=== PATIENT | female | born 1940 | race Caucasian/White ===

== ENCOUNTER 2024-12-10 09:09 | Emergency (ER) | payer OTHER ==
--- OUTSIDE RECORDS SUMMARY | 2024-12-10 09:15 | XMS REPORT | Continuity of Care Document ---
Author Name Unknown Address [address] [facility] [address] [place] [address] [facility] Address [address] [facility] [address] [place] [address] Care Team Providers Care Retail Salesman Name Role Phone Loretta Gordon Attending Clinician Unavailable DR RONEY TIDWELL Attending Clinician Unavailgalina PEÑA, DR LORETTA Dias Attending Clinician Unavailable DR NAHUN COPELAND Attending Clinician UnaAamir Farias Attending Clinician Unavailable Jose Garcia Attending Clinician Unavailable DR AAMIR POWELL Attending Clinician Un available Sophia Bedoya Attending Clinician Unavailable Asad Sanabria Attending Clinician Unavailable Lance Zamora Attending Clinician Unavailable Anastacio Peña Attending Clinician Unavailable DR RONEY TIDWELL Admitting Clinician UnavailDR LORETTA Mallory Admitting Clinician Unavailable DR NAHUN COPELAND Admitting Clinician Aamir Hollingsworth Admitting Clinician Unavailable DR AAMIR POWELL Admitting Clinician Un available Kiko Oliver Admitting Clinician Unavailliliana ble Payers Payer Name Policy Type Policy Number Effective Date Expirati on Date Source [employer] MANAGED MEDICARE - OP [id number] [employer] MA[employer]GED MEDICARE - OP [id number] Problems Condition Name Condition Details Condition Category Status Onset Date Resolution Date Last Treatment Date Treating Clinician Comments Source Urinary tract infection Problem [facility] Anemia Problem Active [facility] Weakness Problem Active [facility] Hypertensi on Problem Active [facility] Allergies, Adverse Reactions, Alerts Allergy Name Allergy Type Status Severity Reaction(s) Onset Date Inactive Date Treating Clinician Comments Source Penicill ins Allergy to substanc e Active Unknown 09-09 10:45: 19 [facility] Penicill ins Allergy to substanc e Active 09-09 09:45: 19 [facility] Penicill ins DA Active U Rash 09-09 00:00: 00 [facility] Perez Penicill ins Allergy to substanc e Active 02-16 01:27: 03 [facility] Penicill ins Allergy to substanc e Active 02-16 00:27: 03 [facility] Penicill ins DA Active U Rash 02-16 00:00: 00 [facility] Social History Social Habit Start Date Stop Date Quantity Comments Source History of tobacco use [facility] Sex 2024-02-27 11:04:00 2024-02-27 11:04:00 Female (finding) [facility] Sex Assigned At 1940 00:00:00 1940 00:00:00 Female [facility] Smoking Status Start Date Stop Date Source Unknown if ever smoked [facility] Never smoked tobacco (finding) [facility] Medications Ordered Medication Name Filled Medication Name Start Date Stop Date Current Medication? Ordering Clinician Indication Dosage Frequency Signature (SIG) Comments Components Source Lorazepam 09-09 01:00: 00 No .5MG As Needed [facility] Lorazepam 0.5 MG Tablet 09-09 01:00: 00 No .5MG As Needed as needed for Anxiety [facility] Lorazepam 09-09 00:00: 00 No .5MG As Needed [facility] Amlodipine Besylate (Norvasc) 2.5 MG Tablet 02-16 00:00: [address] [facility] Levothyroxi ne Sodium 02-16 00:00: [address] [facility] Simvastatin 20 MG Tablet 02-16 00:00: 00 No 20MG Every Evening [facility] Valsartan (Diovan) 160 MG Tablet 02-16 00:00: [address] [facility] Levothyroxi ne Sodium 50 MCG Capsule 02-16 00:00: [address] [facility] Cholecalcif aaron (Vitamin D3) (Vitamin D3) 1000 UNIT Capsule 02-16 00:00: 00 09-09 10:48 :24 No 5000UNI T As Directed [facility] Amlodipine Besylate (Norvasc) 2.5 MG Tablet 02-15 23:00: [address] [facility] Levothyroxi ne Sodium 02-15 23:00: [address] [facility] Simvastatin 02-15 23:00: 00 No 20MG Every Evening [facility] Valsartan (Diovan) 160 MG Tablet 02-15 23:00: [address] [facility] Cholecalcif aaron (Vitamin D3) (Vitamin D3) 1000 UNIT Capsule 02-15 23:00: 00 09-09 09:48 :24 No 5000UNI T As Directed [facility] Vital Signs Vital Name Observation Time Observation Value Comments S ource WEIGHT 2023-09-09 09:49:00 58.091487 kg HEIGHT 2023-09-09 09:49:00 172.72 cm Body Temperature 2023-09-12 09:02:00 98.5 [degF] [facility] Heart Rate 2023-09-12 09:02:00 100 /min [facility] Respiratory rate 2023-09-12 09:02:00 15 /min [facility] Oxygen saturation by Pulse oximetry 2023-09-12 09:02:00 94 /min [facility] BP Systolic 2023-09-12 09:02:00 147 mm[Hg] [facility] BP Diastolic 2023-09-12 09:02:00 76 mm[Hg] [facility] Body Temperature 2023-09-12 08:02:00 98.5 [degF] [facility] Heart Rate 2023-09-12 08:02:00 100 /min [facility] Respiratory rate 2023-09-12 08:02:00 15 /min [facility] Oxygen saturation by Pulse oximetry 2023-09-12 08:02:00 94 /min [facility] BP Systolic 2023-09-12 08:02:00 147 mm[Hg] [facility] BP Diastolic 2023-09-12 08:02:00 76 mm[Hg] [facility] Height 2023-09-09 10:43:[address] [facility] Weight 2023-09-09 10:43:[address] [facility] BMI (Body Mass Index) 2023-09-09 10:43:00 19.8 kg/m2 [facility] Height 2023-09-09 09:43:[address] [facility] Weight 2023-09-09 09:43:[address] [facility] BMI (Body Mass Index) 2023-09-09 09:43:00 19.8 kg/m2 [facility] Heart Rate 2023-09-11 09:04:00 88 /min [facility] BP Systolic 2023-09-11 09:04:00 131 mm[Hg] [facility] BP Diastolic 2023-09-11 09:04:00 72 mm[Hg] [facility] Body Temperature 2023-09-11 08:00:00 97.7 [degF] [facility] Respiratory rate 2023-09-11 08:00:00 20 /min [facility] Oxygen saturation by Pulse oximetry 2023-09-11 08:00:00 98 /min [facility] Height 2023-09-09 09:43:[address] [facility] Weight 2023-09-09 09:43:[address] [facility] BMI (Body Mass Index) 2023-09-09 09:43:00 19.8 kg/m2 [facility] WEIGHT 2021-02-16 01:46:00 58.290087 kg HEIGHT 2021-02-16 01:46:00 172.72 cm Procedures Procedure Date / Time Performed Performing Clinicia n Source EKG 12 Lead 2023-09-10 09:49:00 [facility] EKG 12 Lead 2023-09-10 08:49:00 [facility] EKG 12 Lead 2023-09-10 08:49:00 [facility] XR Hip Lt 2-3 View 2023-05-19 10:26:00 [facility] XR Lumbar Spine Bending Min 4V 2023-05-19 10:26:00 [facility] Encounters Start Date/Time End Date/Time Encounter Type Admission Type Attending Clinicians Care Facility Care Department Encounter ID Source 2023-09-11 13:56:00 Outpatient Loretta Gordon [facility] [id number] [facility] ent Clinics 2023-08-19 11:41:01 Outpatient Loretta Gordon [facility] [id number] [facility] ent Clinics 2023-07-17 13:26:00 Outpatient Loretta Gordon [facility] [id number] [facility] ent Clinics 2024-02-10 09:25:00 2024-02-10 23:00:00 Outpatient [id number] 2024-02-10 09:25:00 2024-02-10 23:00:00 Outpatient RONEY HOWARD RADIOLOGY [id number] [facility] 2024-02-10 09:25:00 2024-02-10 09:25:00 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, lumbar region 02/10/2024 SNOMED-CT 1.3.6.1.4 .1.42590 1.3.6.1.4.1 .25288 [id number] 2024-02-09 08:41:00 2024-02-09 23:00:00 Outpatient LORETTA GLASS NON PATIENT [id number] [facility] 2024-02-05 13:57:00 2024-02-05 23:00:00 Outpatient [id number] 2024-02-05 13:57:00 2024-02-05 23:00:00 Outpatient LORETTA GLASS ULTRASOUND [id number] [facility] 2024-02-05 13:44:00 2024-02-05 23:00:00 Outpatient LORETTA GLASS NON PATIENT [id number] [facility] 2024-02-05 13:57:00 2024-02-05 13:57:00 Chronic kidney disease, stage 4 (severe) 02/05/2024 SNOMED-CT 1.3.6.1.4 .1.00704 1.3.6.1.4.1 .79099 [id number] 2024-01-27 14:11:00 2024-01-27 23:00:00 Outpatient LORETTA GLASS NON PATIENT [id number] [facility] 2023-11-28 08:40:00 2023-11-28 23:00:[address] SCAN [id number] [facility] 2023-11-27 16:01:00 2023-11-27 23:00:00 Outpatient NAHUN MCGUIRE OUTPATIENT [id number] [facility] 2023-09-10 13:13:00 2023-09-12 10:10:00 Inpatient Aamir Holbrook [facility] [id number] [facility] 2023-09-01 17:36:00 2023-09-01 20:33:00 Emergency ER Jose Garcia [facility] [id number] [facility] 2023-09-01 17:36:00 2023-09-01 20:33:00 Departed Emergency [facility] [id number] [facility] 2023-09-01 14:44:00 2023-09-01 14:44:00 Outpatient AAMIR BLACK [facility] PHYSICIAL THERAPY [id number] [facility] 2023-05-19 12:10:00 2023-05-19 12:11:00 Departed Physician/ Provider Office Visit [id number] [facility] Ctr-PBC Nella Bedoya VETERINARY SURGEON [id number] [facility] 2023-05-19 10:22:00 2023-05-19 10:23:00 Outpatient Sophia Dash [facility] [id number] [facility] 2023-05-19 10:22:00 2023-05-19 10:23:00 Departed Clinical [facility] [id number] [facility] 2021-02-15 23:10:00 2021-02-17 17:20:00 Inpatient ER Asad Sanabria [facility] [id number] [facility] 2020-07-18 09:27:00 2020-07-18 09:28:00 Outpatient Lance Rodrigez [facility] [id number] [facility] 2018-03-19 15:38:00 2018-03-19 15:39:00 Outpatient Anastacio Roldan [facility] [id number] [facility] 2017[facility]12-10 10:09:00 2017-12-10 10:10:00 Outpatient Lance Rodrigez [facility] [id number] [facility] Results Test Description Test Time Test Comments Results Result Co mments Source Serum or plasma sodium measurement (moles/volume)2023-09-11 04:18:00* Test Item Value Reference Range Interpretation Comme [facility] Sodium Level (test code = 2951-2) 131 mmol/L 136-145 [facility] or plasma potassium measurement (moles/volume) 2023-09-11 04:18:00* Test Item Value Reference Range Interpretation Comme [facility] Potassium Level (test code = 2823-3) 4.3 mmol/L 3.5-5.1 [facility] or plasma chloride measurement (moles/volume) 2023-09-11 04:18:00* Test Item Value Reference Range Interpretation Comme [facility] Chloride Level (test code = 2075-0) 99 mmol/L 98-107 [facility] or plasma carbon dioxide, total measurement (moles/volume)2023-09-11 04:18:00* Test Item Value Reference Range Interpretation Comme [facility] Carbon Dioxide Level (test c ode = 2027-9) 25 mmol/L 23-31 [facility] or plasma anion [id number] 04:18:00* Test Item Value Reference Range Interpretation Comme nts Anion Gap (test code = 56590-5) 11 mmol/L 10-20 [facility] or plasma urea nitrogen measurement (mass/volume)2023-09-11 04:18:00* Test Item Value Reference Range Interpretation Comme nts Blood Urea Nitrogen (test co de = 3094-0) 20 mg/dL 9.8-20.1 [facility] or plasma creatinine measurement (mass/volume) 2023-09-11 04:18:00* Test Item Value Reference Range Interpretation Comme nts Creatinine (test code = 2160-0) 0.95 mg/dL 0.6-1.1 [facility]1.73 sq M.predicted [Volume Rate/Area] in Serum, Plasma [id number] 04:18:00* Test Item Value Reference Range Interpretation Comme [facility] Estimated GFR (CKD-EPI 2020) (test code = 54096-5) 59 [facility]] in Serum or [id number] 04:18:00* Test Item Value Reference Range Interpretation Comme [facility] Glucose Level (test code = 2345-7) 129 mg/dL 83-110 [facility] calcium measurement (mass/volume) 2023-09-11 04:18:00* Test Item Value Reference Range Interpretation Comme [facility] Calcium Level (test code = 91100-6) 9.3 mg/dL 7.8-10.44 [facility] in Blood by Automated count 2023-09-11 04:18:00* Test Item Value Reference Range Interpretation Comme [facility] White Blood Count (test code = 6690-2) 10.8 10x3/uL 4.8-10.8 [facility] erythrocytes automated count (number/volume) 2023-09-11 04:18:00* Test Item Value Reference Range Interpretation Comme [facility] Red Blood Count (test code = 789-8) 3.46 mill/uL 4.20-5.40 [facility] hemoglobin measurement (mass/volume)2023-09-11 04:18:00* Test Item Value Reference Range Interpretation Comme [facility] Hemoglobin (test code = 718-7) 10.4 g/dL 12.0-16.0 [facility] whole [id number] 04:18:00* Test Item Value Reference Range Interpretation Comme [facility] Hematocrit (test code = 70890-5) 32.0 % 36.0-47.0 [facility] corpuscular volume 2023-09-11 04:18:00* Test Item Value Reference Range Interpretation Comme [facility] Mean Corpuscular Volume (ronnie t code = 787-2) 92.5 fl 78.0-98.0 [facility] mean corpuscular hemoglobin (mass per erythrocyte)2023-09-11 04:18:00* Test Item Value Reference Range Interpretation Comme [facility] Mean Corpuscular Hemoglobin (test code = 785-6) 30.1 pg 27.0-31.0 [facility] erythrocyte mean corpuscular hemoglobin concentration measurement (mass/[id number] 04:18:00* Test Item Value Reference Range Interpretation Comme [facility] Mean Corpuscular Hemoglobin Concent (test code = 786-4) 32.5 g/dL 32.0-36.0 [facility] erythrocyte distribution width ratio 2023-09-11 04:18:00* Test Item Value Reference Range Interpretation Comme [facility] Red Cell Distribution Width (test code = 788-0) 13.0 % 11.5-14.5 [facility] blood platelet count (count/volume) 2023-09-11 04:18:00* Test Item Value Reference Range Interpretation Comme [facility] Platelet Count (test code = 777-3) 257 10x3/uL 130-400 [facility] blood platelet mean [id number] 04:18:00* Test Item Value Reference Range Interpretation Comme [facility] Mean Platelet Volume (test c ode = 09896-5) 11.5 fL 7.4-10.4 [facility] neutrophils/100 [id number] 04:18:00* Test Item Value Reference Range Interpretation Comme [facility] Neutrophils % (test code = 770-8) 85.5 % 42.0-75.0 [facility] leukocytes in Blood by Automated count 2023-09-11 04:18:00* Test Item Value Reference Range Interpretation Comme [facility] Lymphocytes % (test code = 736-9) 3.8 % 21.0-51.0 [facility] monocytes/100 [id number] 04:18:00* Test Item Value Reference Range Interpretation Comme [facility] Monocytes % (test code = 5905-5) 10.2 % 0.0-10.0 [facility] blood eosinophils/100 [id number] 04:18:00* Test Item Value Reference [facility]ation [facility] Eosinophils % (test code = 713-8) 0.0 % 0.0-10.0 [facility] bas[facility]/100 [id number] 04:18:00* Test Item Value Reference Range Interpretation [facility] Basophils % (test code = 706-2) 0.1 % 0.0-1.0 [facility] immature granulocyte count as percentage of total [id number] 04:18:00* Test Item Value Reference Range Interpretation [facility] Immature Granulocyte % (Auto ) (test code = 60048-4) 0.4 % 0-5 [facility] neutrophils automated count (number/volume) 2023-09-11 04:18:00* Test Item Value Reference Range Interpretation [facility] Neutrophils # (test code = 751-8) 9.2 thou/uL 1.40-6.50 [facility] monocytes automated count (number/volume) 2023-09-11 04:18:00* Test Item Value Reference Range Interpretation [facility] Monocytes # (test code = 742-7) 1.1 thou/uL 0.11-0.59 [facility] eosinophils automated count (count/volume) 2023-09-11 04:18:00* Test Item Value Reference Range Interpretation [facility] Eosinophils # (test code = 711-2) 0.0 thou/uL 0.0-0.7 [facility] basophil count (count/volume) 2023-09-11 04:18:00* Test Item Value Reference Range Interpretation [facility] Basophils # (test code = 704-7) 0.0 thou/uL 0.0-0.2 [facility]:17[facility]* Test Item Value Reference Range Interpretation Comme [facility] Hematology (test code = WBCT) 10.8 10x3/uL 4.8-10.8 N Hematology (test code = RBCT) 3.46 mill/uL 4.20-5.40 L Hematology (test code = HGBT) 10.4 g/dL 12.0-16.0 L Hematology (test code = HCTT) 32.0 % 36.0-47.0 L Hematology (test code = MCV) 92.5 fl 78.0-98.0 N Hematology (test code = MCH) 30.1 pg 27.0-31.0 N Hematology (test code = MCHC) 32.5 g/dL 32.0-36.0 N Hematology (test code = RDW) 13.0 % 11.5-14.5 N Hematology (test code = PLTT) 257 10x3/uL 130-400 N Hematology (test code = MPV) 11.5 fL 7.4-10.4 H Hematology (test code = %NEUT) 85.5 % 42.0-75.0 H Hematology (test code = %LYMPH) 3.8 % 21.0-51.0 L Hematology (test code = %MONO) 10.2 % 0.0-10.0 H Hematology (test code = %EOS) 0.0 % 0.0-10.0 N Hematology (test code = %BASO) 0.1 % 0.0-1.0 N Hematology (test code = %IG) 0.4 % 0-5 N Hematology (test code = %NRBC) 0.0 % 0.0-0.0 N Hematology (test code = NEUT#) 9.2 thou/uL 1.40-6.50 H Hematology (test code = LYMPH#XN) 0.4 10x3/uL 1.20-3.40 L Hematology (test code = MONO#) 1.1 thou/uL 0.11-0.59 H Hematology (test code = EOS#) 0.0 thou/uL 0.0-0.7 N Hematology (test code = BASO#) 0.0 thou/uL 0.0-0.2 N Hematology (test code = IG#) 0.04 10x3/uL 0.00-0.50 N Hematology (test code = NRBC#) 0.0 10x3/uL None Seen N Serum or plasma sodium measurement (moles/volume)2023-09-11 03:18:00* Test Item Value Reference Range Interpretation Comme nts Sodium Level (test code = 2951-2) 131 mmol/L 136-145 [facility] or plasma potassium measurement (moles/volume) 2023-09-11 03:18:00* Test Item Value Reference Range Interpretation Comme [facility] Potassium Level (test code = 2823-3) 4.3 mmol/L 3.5-5.1 [facility] or plasma chloride measurement (moles/volume) 2023-09-11 03:18:00* Test Item Value Reference Range Interpretation Comme nts Chloride Level (test code = 2075-0) 99 mmol/L 98-107 [facility] or plasma carbon dioxide, total measurement (moles/volume)2023-09-11 03:18:00* Test Item Value Reference Range Interpretation Comme [facility] Carbon Dioxide Level (test c ode = 2027-9) 25 mmol/L 23-31 [facility] or plasma anion [id number] 03:18:00* Test Item Value Reference Range Interpretation Comme [facility] Anion Gap (test code = 35328-6) 11 mmol/L 10-20 [facility] or plasma urea nitrogen measurement (mass/volume)2023-09-11 03:18:00* Test Item Value Reference Range Interpretation Comme [facility] Blood Urea Nitrogen (test co de = 3094-0) 20 mg/dL 9.8-20.1 [facility] or plasma creatinine measurement (mass/volume) 2023-09-11 03:18:00* Test Item Value Reference Range Interpretation Comme [facility] Creatinine (test code = 2160-0) 0.95 mg/dL 0.6-1.1 [facility]/1.73 sq M.predicted [Volume Rate/Area] in Serum, Plasma [id number] 03:18:00* Test Item Value Reference Range Interpretation Comme [facility] Estimated GFR (CKD-EPI 2020) (test code = 30507-0) 59 [facility] [[facility]/volume] in Serum or [id number] 03:18:00* Test Item Value Reference Range Interpretation Comme [facility] Glucose Level (test code = 2345-7) 129 mg/dL 83-110 [facility] or plasma calcium measurement (mass/volume) 2023-09-11 03:18:00* Test Item Value Reference Range Interpretation Comme [facility] Calcium Level (test code = 76956-6) 9.3 mg/dL 7.8-10.44 [facility] [#/[facility] in Blood by Automated count 2023-09-11 03:18:00* Test Item Value Reference Range Interpretation Comme [facility] White Blood Count (test code = 6690-2) 10.8 10x3/uL 4.8-10.8 [facility] (number/volume) 2023-09-11 03:18:00* Test Item Value Reference Range Interpretation Comme [facility] Red Blood Count (test code = 789-8) 3.46 mill/uL 4.20-5.40 [facility] (mass/volume)2023-09-11 03:18:00* Test Item Value Reference Range Interpretation Comme [facility] Hemoglobin (test code = 718-7) 10.4 g/dL 12.0-16.0 [facility] [id number] 03:18:00* Test Item Value Reference Range Interpretation Comme [facility] Hematocrit (test code = 98889-2) 32.0 % 36.0-47.0 [facility] mean corpuscular volume 2023-09-11 03:18:00* Test Item Value Reference Range Interpretation Comme [facility] Mean Corpuscular Volume (ronnie t code = 787-2) 92.5 fl 78.0-98.0 [facility] mean corpuscular hemoglobin (mass per erythrocyte)2023-09-11 03:18:00* Test Item Value Reference Range Interpretation Comme [facility] Mean Corpuscular Hemoglobin (test code = 785-6) 30.1 pg 27.0-31.0 [facility] mean corpuscular hemoglobin concentration measurement (mass/[id number] 03:18:00* Test Item Value Reference Range Interpretation Comme [facility] Mean Corpuscular Hemoglobin Concent (test code = 786-4) 32.5 g/dL 32.0-36.0 [facility] erythrocyte distribution width ratio 2023-09-11 03:18:00* Test Item Value Reference Range Interpretation Comme [facility] Red Cell Distribution Width (test code = 788-0) 13.0 % 11.5-14.5 [facility] platelet count (count/volume) 2023-09-11 03:18:00* Test Item Value Reference Range Interpretation Comme [facility] Platelet Count (test code = 777-3) 257 10x3/uL 130-400 [facility] platelet mean [id number] 03:18:00* Test Item Value Reference Range Interpretation Comme [facility] Mean Platelet Volume (test c ode = 12726-8) 11.5 fL 7.4-10.4 [facility] neutrophils/100 [id number] 03:18:00* Test Item Value Reference Range Interpretation Comme [facility] Neutrophils % (test code = 770-8) 85.5 % 42.0-75.0 [facility] leukocytes in Blood by Automated count 2023-09-11 03:18:00* Test Item Value Reference Range Interpretation Comme [facility] Lymphocytes % (test code = 736-9) 3.8 % 21.0-51.0 [facility] monocytes/100 [id number] 03:18:00* Test Item Value Reference Range Interpretation Comme [facility] Monocytes % (test code = 5905-5) 10.2 % 0.0-10.0 [facility] eosinophils/100 [id number] 03:18:00* Test Item Value Reference Range Interpretation Comme [facility] Eosinophils % (test code = 713-8) 0.0 % 0.0-10.0 [facility] basophils/100 lrzpscdoxe6632-88-60 03:18:00* Test Item Value Reference Range Interpretation Comme [facility] Basophils % (test code = 706-2) 0.1 % 0.0-1.0 [facility] granulocyte count as percentage of total xzaqwtkkya9516-17-33 03:18:00* Test Item Value Reference Range Interpretation Comme [facility] Immature Granulocyte % (Auto ) (test code = 96453-5) 0.4 % 0-5 [facility] neutrophils automated count (number/volume) 2023-09-11 03:18:00* Test Item Value Reference Range Interpretation Comme [facility] Neutrophils # (test code = 751-8) 9.2 thou/uL 1.40-6.50 [facility] monocytes [facility] count (number/volume) 2023-09-11 03:18:00* Test Item Value Reference Range Interpretation Comme nts Monocytes # (test code = 742-7) 1.1 thou/uL 0.11-0.59 [facility] (count/volume) 2023-09-11 03:18:00* Test Item Value Reference Range Interpretation Comme [facility] Eosinophils # (test code = 711-2) 0.0 thou/uL 0.0-0.7 [facility] blood basophil count (count/volume) 2023-09-11 03:18:00* Test Item Value Reference Range Interpretation Comme [facility] Basophils # (test code = 704-7) 0.0 thou/uL 0.0-0.2 [facility] or plasma sodium measurement (moles/volume) 2023-09-11 03:18:00* Test Item Value Reference Range Interpretation Comme [facility] Sodium Level (test code = 2951-2) 131 mmol/L 136-145 [facility] or plasma potassium measurement (moles/volume) 2023-09-11 03:18:00* Test Item Value Reference Range Interpretation Comme [facility] Potassium Level (test code = 2823-3) 4.3 mmol/L 3.5-5.1 [facility] or plasma chloride measurement (moles/volume) 2023-09-11 03:18:00* Test Item Value Reference Range Interpretation Comme [facility] Chloride Level (test code = 2075-0) 99 mmol/L 98-107 [facility] or plasma carbon dioxide, total measurement (moles/volume)2023-09-11 03:18:00* Test Item Value Reference Range Interpretation Comme [facility] Carbon Dioxide Level (test c ode = 2027-9) 25 mmol/L 23-31 [facility] or plasma anion [id number] 03:18:00* Test Item Value Reference Range Interpretation Comme [facility] Anion Gap (test code = 13589-8) 11 mmol/L 10-20 [facility] or plasma urea nitrogen measurement (mass/volume)2023-09-11 03:18:00* Test Item Value Reference Range Interpretation Comme [facility] Blood Urea Nitrogen (test co de = 3094-0) 20 mg/dL 9.8-20.1 [facility] or plasma creatinine measurement (mass/volume) 2023-09-11 03:18:00* Test Item Value Reference Range Interpretation Comme [facility] Creatinine (test code = 2160-0) 0.95 mg/dL 0.6-1.1 [facility]/1.73 sq M.predicted [Volume Rate/Area] in Serum, Plasma jh9033-03-51 03:18:00* Test Item Value Reference Range Interpretation Comme [facility] Estimated GFR (CKD-EPI 2020) (test code = 86042-2) 59 [facility]] in Serum or Xtdnfh4329-42-95 03:18:00* Test Item Value Reference Range Interpretation Comme [facility] Glucose Level (test code = 2345-7) 129 mg/dL 83-110 [facility] or plasma calcium measurement (mass/volume) 2023-09-11 03:18:00* Test Item Value Reference Range Interpretation Comme [facility] Calcium Level (test code = 36221-2) 9.3 mg/dL 7.8-10.44 [facility] [#/volume] in Blood by Automated count 2023-09-11 03:18:00* Test Item Value Reference Range Interpretation Comme [facility] White Blood Count (test code = 6690-2) 10.8 10x3/uL 4.8-10.8 [facility] erythrocytes automated count (number/volume) 2023-09-11 03:18:00* Test Item Value Reference Range Interpretation Comme [facility] Red Blood Count (test code = 789-8) 3.46 mill/uL 4.20-5.40 [facility] hemoglobin measurement (mass/volume)2023-09-11 03:18:00* Test Item Value Reference Range Interpretation Comme [facility] Hemoglobin (test code = 718-7) 10.4 g/dL 12.0-16.0 [facility], whole sopws3427-88-46 03:18:00* Test Item Value Reference Range Interpretation Comme [facility] Hematocrit (test code = 65695-4) 32.0 % 36.0-47.0 [facility] erythrocyte mean corpuscular volume 2023-09-11 03:18:00* Test Item Value Reference Range Interpretation Comme [facility] Mean Corpuscular Volume (ronnie t code = 787-2) 92.5 fl 78.0-98.0 [facility] mean corpuscular hemoglobin (mass per erythrocyte)2023-09-11 03:18:00* Test Item Value Reference Range Interpretation Comme [facility] Mean Corpuscular Hemoglobin (test code = 785-6) 30.1 pg 27.0-31.0 [facility] erythrocyte mean corpuscular hemoglobin concentration measurement (mass/pja8540-30-90 03:18:00* Test Item Value Reference Range Interpretation Comme [facility] Mean Corpuscular Hemoglobin Concent (test code = 786-4) 32.5 g/dL 32.0-36.0 [facility] erythrocyte distribution width ratio 2023-09-11 03:18:00* Test Item Value Reference Range Interpretation Comme [facility] Red Cell Distribution Width (test code = 788-0) 13.0 % 11.5-14.5 [facility] blood platelet count (count/volume) 2023-09-11 03:18:00* Test Item Value Reference Range Interpretation Comme [facility] Platelet Count (test code = 777-3) 257 10x3/uL 130-400 [facility] blood platelet mean mxgszr4870-01-10 03:18:00* Test Item Value Reference Range Interpretation Comme [facility] Mean Platelet Volume (test c ode = 69616-9) 11.5 fL 7.4-10.4 [facility] neutrophils/100 cckilsqqdd1434-90-89 03:18:00* Test Item Value Reference Range Interpretation Comme [facility] Neutrophils % (test code = 770-8) 85.5 % 42.0-75.0 [facility] leukocytes in Blood by Automated count 2023-09-11 03:18:00* Test Item Value Reference Range Interpretation Comme nts Lymphocytes % (test code = 736-9) 3.8 % 21.0-51.0 [facility] monocytes/100 qcyyfokoes0672-49-32 03:18:00* Test Item Value Reference Range Interpretation Comme nts Monocytes % (test code = 5905-5) 10.2 % 0.0-10.0 [facility] eosinophils/100 oyptagazsd7131-64-41 03:18:00* Test Item Value Reference Range Interpretation Comme nts Eosinophils % (test code = 713-8) 0.0 % 0.0-10.0 [facility] basophils/100 argypeqiku8042-97-00 03:18:00* Test Item Value Reference Range Interpretation Comme nts Basophils % (test code = 706-2) 0.1 % 0.0-1.0 [facility] blood immature granulocyte count as percentage of total gyppszcmty4948-92-04 03:18:00* Test Item Value Reference Range Interpretation Comme nts Immature Granulocyte % (Auto ) (test code = 91417-2) 0.4 % 0-5 [facility] neutrophils automated count (number/volume) 2023-09-11 03:18:00* Test Item Value Reference Range Interpretation Comme [facility] Neutrophils # (test code = 751-8) 9.2 thou/uL 1.40-6.50 [facility] monocytes automated count (number/volume) 2023-09-11 03:18:00* Test Item Value Reference Range Interpretation Comme nts Monocytes # (test code = 742-7) 1.1 thou/uL 0.11-0.59 [facility] count (count/volume) 2023-09-11 03:18:00* Test Item Value Reference Range Interpretation Comme nts Eosinophils # (test code = 711-2) 0.0 thou/uL 0.0-0.7 [facility] blood basophil count (count/volume) 2023-09-11 03:18:00* Test Item Value Reference Range Interpretation Comme nts Basophils # (test code = 704-7) 0.0 thou/uL 0.0-0.2 [facility] ([facility] in platelet poor plasma by coagulation yvhpw0384-81-93 10:14:00* Test Item Value Reference Range Interpretation [facility] Prothrombin Time (test code = 5902-2) 13.9 sec 12.0-14.7 [facility] Platelet poor plasma by Coagulation assay 2023-09-10 10:14:00* Test Item Value Reference Range Interpretation [facility] INR International Normalized Ratio (test code = 6301-6) 1.1 [facility] partial thromboplastin time (aPTT) in platelet poor plasma by coagulation z6751-02-72 10:14:00* Test Item Value Reference Range Interpretation [facility] Activated Partial Thrombopla st Time (test code = 42397-2) 29.4 sec 22.9-36.1 [facility] HospitalDcpiwsOkcfyiuwfpp1081-22-95 09:38:00* Test Item Value Reference Range Interpretation [facility] Coagulation (test code = PT-T) 13.9 sec 12.0-14.7 N Coagulation (test code = INR) 1.1 ATTENTION: READ CAREFULLY The recommended therapeutic ranges for oral anticoagulanttreatments are: ------ Low Intensity: 1.5 - 2.0 Moderate Intensity: 2.0 - 3.0 High Intensity (1): 2.5 - 3.5 High Intensity (2): 3.0 - 4.0 CRITICAL: > 6.0 Coagulation (test code = PTT) 29.4 sec 22.9-36.1 N Anticoagulant? WHWLHlkpvladw8197-86-16 09:34:00* Test Item Value Reference Range Interpretation [facility] Chemistry (test code = NA-T) 137 mmol/L 136-145 N Chemistry (test code = K-T) 4.7 mmol/L 3.5-5.1 N Chemistry (test code = CL-T) 104 mmol/L 98-107 N Chemistry (test code = CO2-T) 24 mmol/L 23-31 N Chemistry (test code = ANGP) 14 mmol/L 10-20 N Chemistry (test code = BUN) 21 mg/dL 9.8-20.1 H Chemistry (test code = CREATT) 1.06 mg/dL 0.6-1.1 N Chemistry (test code = EGFRCR) 51 Reference Range for Estimated GFR: Greater than 90 mL/min/1.73 p2Jywqfall eGFR is based on the CKD-EPI 2020 equation thatdoes not use a race coefficient. Chemistry (test code = GLU-T) 105 mg/dL 83-110 N Chemistry (test code = CA-T) 10.3 mg/dL 7.8-10.44 N Fiknkbidvr8540-73-44 09:20:00* Test Item Value Reference Range Interpretation Comme nts Hematology (test code = WBCT) 4.9 10x3/uL 4.8-10.8 N Hematology (test code = RBCT) 3.64 mill/uL 4.20-5.40 L Hematology (test code = HGBT) 11.2 g/dL 12.0-16.0 L Hematology (test code = HCTT) 33.5 % 36.0-47.0 L Hematology (test code = MCV) 92.0 fl 78.0-98.0 N Hematology (test code = MCH) 30.8 pg 27.0-31.0 N Hematology (test code = MCHC) 33.4 g/dL 32.0-36.0 N Hematology (test code = RDW) 13.0 % 11.5-14.5 N Hematology (test code = PLTT) 258 10x3/uL 130-400 N Hematology (test code = MPV) 10.8 fL 7.4-10.4 H Hematology (test code = %NEUT) 70.8 % 42.0-75.0 N Hematology (test code = %LYMPH) 13.2 % 21.0-51.0 L Hematology (test code = %MONO) 13.8 % 0.0-10.0 H Hematology (test code = %EOS) 1.4 % 0.0-10.0 N Hematology (test code = %BASO) 0.6 % 0.0-1.0 N Hematology (test code = %IG) 0.2 % 0-5 N Hematology (test code = %NRBC) 0.0 % 0.0-0.0 N Hematology (test code = NEUT#) 3.5 thou/uL 1.40-6.50 N Hematology (test code = LYMPH#XN) 0.7 10x3/uL 1.20-3.40 L Hematology (test code = MONO#) 0.7 thou/uL 0.11-0.59 H Hematology (test code = EOS#) 0.1 thou/uL 0.0-0.7 N Hematology (test code = BASO#) 0.0 thou/uL 0.0-0.2 N Hematology (test code = IG#) 0.01 10x3/uL 0.00-0.50 N Hematology (test code = NRBC#) 0.0 10x3/uL None Seen N Prothrombin time (PT) in platelet poor plasma by coagulation vlqfe9335-22-23 09:14:00* Test Item Value Reference Range Interpretation Comme [facility] Prothrombin Time (test code = 5902-2) 13.9 sec 12.0-14.7 [facility] Platelet poor plasma by Coagulation assay 2023-09-10 09:14:00* Test Item Value Reference Range Interpretation Comme [facility] INR International Normalized Ratio (test code = 6301-6) 1.1 [facility]oplast[facility] (aPTT) in platelet poor plasma by coagulation [id number] 09:14:00* Test Item Value Reference Range Interpretation Comme [facility] Activated Partial Thrombopla st Time (test code = 61686-1) 29.4 sec 22.9-36.1 [facility] (PT) in platelet poor plasma by coagulation fvzus9227-87-83 09:14:00* Test Item Value Reference Range Interpretation Comme [facility] Prothrombin Time (test code = 5902-2) 13.9 sec 12.0-14.7 [facility] Platelet poor plasma by Coagulation assay 2023-09-10 09:14:00* Test Item Value Reference Range Interpretation Comme nts INR International Normalized Ratio (test code = 6301-6) 1.1 [facility]oplastin [facility] (aPTT) in platelet poor plasma by coagulation [id number] 09:14:00* Test Item Value Reference Range Interpretation [facility] Activated Partial Thrombopla st Time (test code = 77133-6) 29.4 sec 22.9-36.1 [facility] 06:45:00* Test Item Value Reference Range Interpretation [facility] Chemistry (test code = NA-T) 133 mmol/L 136-145 L Chemistry (test code = K-T) 3.6 mmol/L 3.5-5.1 N Chemistry (test code = CL) 102 mmol/L 98-107 N Chemistry (test code = CO2) 23 mmol/L 23-31 N Chemistry (test code = ANGP) 12 mmol/L 10-20 N Chemistry (test code = BUN) 12 mg/dL 9.8-20.1 N Chemistry (test code = CREATT) 0.68 mg/dL 0.6-1.1 N Chemistry (test code = EGFRMDRD) 83 Reference Range for Estimated GFR: Greater than 90 mL/min/1.73 m2NOTE:The MDRD equation has not been validated for use with theelderly (over 70 years of age), women, patientswith serious comorbid condition or persons with extremes ofbody size, muscle mass, or nutritional status. Chemistry (test code = GLU-T) 91 mg/dL 83-110 N Chemistry (test code = CA) 9.2 mg/dL 7.8-10.44 N Umhilyiyk3795-38-31 06:45:00* Test Item Value Reference Range Interpretation [facility] Chemistry (test code = IRON) 43 ug/dL 50-170 L Jvqfdvgky5199-68-14 06:45:00* Test Item Value Reference Range Interpretation [facility] Chemistry (test code = TIBC) 248 mcg/dL 265-497 L Bltoshlqri8552-47-01 06:25:00* Test Item Value Reference Range Interpretation [facility] Hematology (test code = WBCT) 5.9 thou/uL 4.8-10.8 N Hematology (test code = RBCT) 3.22 mill/uL 4.20-5.40 L Hematology (test code = HGBT) 10.3 g/dL 12.0-16.0 L Hematology (test code = HCTT) 30.2 % 36.0-47.0 L Hematology (test code = MCV) 93.9 fL 78.0-98.0 N Hematology (test code = MCH) 32.0 pg 27.0-31.0 H Hematology (test code = MCHC) 34.1 g/dL 32.0-36.0 N Hematology (test code = RDW) 12.7 % 11.5-14.5 N Hematology (test code = PLTT) 279 thou/uL 130-400 N Hematology (test code = MPV) 7.0 fL 7.4-10.4 L Hematology (test code = %NEUT) 69.6 % 42.0-75.0 N Hematology (test code = %LYMPH) 15.8 % 21.0-51.0 L Hematology (test code = %MONO) 12.3 % 0.0-10.0 H Hematology (test code = %EOS) 1.4 % 0.0-10.0 N Hematology (test code = %BASO) 0.9 % 0.0-1.0 N Hematology (test code = NEUT#) 4.1 thou/uL 1.40-6.50 N Hematology (test code = LYMPH#) 0.9 thou/uL 1.20-3.40 L Hematology (test code = MONO#) 0.7 thou/uL 0.11-0.59 H Hematology (test code = EOS#) 0.1 thou/uL 0.0-0.7 N Hematology (test code = BASO#) 0.1 thou/uL 0.0-0.2 N Sywwcctgqf0511-97-82 21:27:00* Test Item Value Reference Range Interpretation Comme nts Urinalysis (test code = UACLR) Light-Yellow Yellow Urinalysis (test code = UACLY) Clear Clear Urinalysis (test code = SPGR) 1.018 1.002-1.036 N Urinalysis (test code = DUNCAN) 7.0 5.0-9.0 N Urinalysis (test code = UALEU) 500 Annabella/uL Negative A Urinalysis (test code = UANIT) Negative Negative Urinalysis (test code = PROUADIP) Negative mg/dL Neg-Trace Urinalysis (test code = GLUCU) Normal mg/dL Negative Urinalysis (test code = KETU) Negative mg/dL Negative Urinalysis (test code = UAUROB) 2.0 mg/dL Less than 2 A Urinalysis (test code = UABIL) Negative Negative Urinalysis (test code = UABLD) Negative Negative Urinalysis (test code = UARBC) 0-3 HPF 0-3 Urinalysis (test code = UAWBC) 21-50 HPF 0-3 A Urinalysis (test code = UASQUAM) 4-6 HPF 0-3 A Urinalysis (test code = UARENAL) 0-3 HPF None Seen A Urinalysis (test code = UABAC) 2+ HPF None Seen A Urinalysis (test code = UAHYAL) 0-3 LPF 0-3 Urinalysis (test code = UAAMOR) Rare HPF None Seen A Urine Source: Urine Clean CatchChemistry - Uvajjxdd7101-13-25 21:03:00* Test Item Value Reference Range Interpretation Comme [facility] Chemistry - Specials (test c ode = TSH3) 1.1001 uIU/mL 0.35-4.94 N Ztpcfgoef8576-84-37 19:10:00* Test Item Value Reference Range Interpretation Comme [facility] Chemistry (test code = TROPI-R) Less than 0.010 ng/mL < 0.028 * Reference Range 0.00 - 0.028 ng/mL Negative 0.029 - 0.29 ng/mL Indeterminate Greater or Equal to 0.3 ng/mL Strongly suggests PA Gdzmxytqi7730-69-85 19:10:00* Test Item Value Reference Range Interpretation Comme [facility] Chemistry (test code = MG) 2.0 mg/dL 1.6-2.6 N Chemistry - BNP, HgbA1c, WANl1347-72-13 19:02:00* Test Item Value Reference Range Interpretation Comme [facility] Chemistry - BNP, HgbA1c, PTH i (test code = BNP) 199.4 pg/mL 0-100 H Chemistry - Majppyxd1096-49-93 18:50:00* Test Item Value Reference Range Interpretation [facility] Chemistry - Specials (test code = VITB12) Greater than 2000 pg/mL 211-911 H Type Hfotbx0218-57-29 18:39:00* Test Item Value Reference Range Interpretation [facility] Blood Type Rh (test code = BT) A POSITIVE Antibody Screen (test code = ABSC) NEGATIVE Received Blood Or Been w/in Past 90 Days? UNKNOWNScheduled Surgery Date: NO SURGERYIs Surgery Date Greater than 7 days from now? NOChemistry - Sqtxultx1232-85-11 18:37:00* Test Item Value Reference Range Interpretation [facility] Chemistry - Specials (test c ode = FOLATE) 13.00 ng/mL 7.0-31.4 N Zjfqeieqyfh5074-68-01 18:20:00* Test Item Value Reference Range Interpretation [facility] Coagulation (test code = PTT) 29.0 sec 22.9-36.1 N Anticoagulant? NONEMedical Necessity SUSPECT COAGULOPATHYAnticoagulant? NONEMedical Necessity: WCAGGITUJqxmjnasudq9763-57-75 18:20:00* Test Item Value Reference Range Interpretation [facility] Coagulation (test code = PT-T) 13.5 sec 12.0-14.7 N Coagulation (test code = INR) 1.0 ATTENTION: READ CAREFULLY The recommended therapeutic ranges for oral anticoagulanttreatments are: ------ Low Intensity: 1.5 - 2.0 Moderate Intensity: 2.0 - 3.0 High Intensity (1): 2.5 - 3.5 High Intensity (2): 3.0 - 4.0 CRITICAL: > 4.0 Anticoagulant? NONEMedical Necessity SUSPECT COAGULOPATHYAnticoagulant? NONEMedical Necessity: YOHDZVPYDxqexkoej3172-74-73 18:15:00* Test Item Value Reference Range Interpretation Comme nts Chemistry (test code = NA-T) 137 mmol/L 136-145 N Chemistry (test code = K-T) 4.1 mmol/L 3.5-5.1 N Chemistry (test code = CL) 101 mmol/L 98-107 N Chemistry (test code = CO2) 27 mmol/L 23-31 N Chemistry (test code = ANGP) 13 mmol/L 10-20 N Chemistry (test code = BUN) 23 mg/dL 9.8-20.1 H Chemistry (test code = CREATT) 0.93 mg/dL 0.6-1.1 N Chemistry (test code = EGFRMDRD) 58 Reference Range for Estimated GFR: Greater than 90 mL/min/1.73 m2NOTE:The MDRD equation has not been validated for use with theelderly (over 70 years of age), women, patientswith serious comorbid condition or persons with extremes ofbody size, muscle mass, or nutritional status. Chemistry (test code = GLU-T) 99 mg/dL 83-110 N Chemistry (test code = CA) 9.6 mg/dL 7.8-10.44 N Chemistry (test code = TBILI-T) 0.4 mg/dL 0.2-1.2 N Chemistry (test code = TP) 6.7 g/dL 5.8-8.1 N Chemistry (test code = ALB) 4.1 g/dL 3.4-4.8 N Chemistry (test code = GLOB) 2.6 g/dL 2.4-3.5 N Chemistry (test code = AG) 1.6 g/dL 1.2-2.2 N Chemistry (test code = ALP) 20 U/L 40-110 L Chemistry (test code = AST) 12 U/L 5-34 N Chemistry (test code = ALT) 10 U/L 8-55 N Jncxktxaun7503-18-45 17:55:00* Test Item Value Reference Range Interpretation Comme nts Hematology (test code = RETICT) 2.7 % 0.5-1.5 H Hematology (test code = IRF) 0.221 Ratio 0.163-0.362 N Eoulgwcrgd9514-97-12 17:50:00* Test Item Value Reference Range Interpretation Comme nts Hematology (test code = WBCT) 6.2 thou/uL 4.8-10.8 N Hematology (test code = RBCT) 3.15 mill/uL 4.20-5.40 L Hematology (test code = HGBT) 10.3 g/dL 12.0-16.0 L Hematology (test code = HCTT) 29.6 % 36.0-47.0 L Hematology (test code = MCV) 94.2 fL 78.0-98.0 N Hematology (test code = MCH) 32.7 pg 27.0-31.0 H Hematology (test code = MCHC) 34.7 g/dL 32.0-36.0 N Hematology (test code = RDW) 12.7 % 11.5-14.5 N Hematology (test code = PLTT) 322 thou/uL 130-400 N Hematology (test code = MPV) 6.7 fL 7.4-10.4 L Hematology (test code = %NEUT) 72.7 % 42.0-75.0 N Hematology (test code = %LYMPH) 13.6 % 21.0-51.0 L Hematology (test code = %MONO) 12.1 % 0.0-10.0 H Hematology (test code = %EOS) 1.0 % 0.0-10.0 N Hematology (test code = %BASO) 0.5 % 0.0-1.0 N Hematology (test code = NEUT#) 4.5 thou/uL 1.40-6.50 N Hematology (test code = LYMPH#) 0.8 thou/uL 1.20-3.40 L Hematology (test code = MONO#) 0.8 thou/uL 0.11-0.59 H Hematology (test code = EOS#) 0.1 thou/uL 0.0-0.7 N Hematology (test code = BASO#) 0.0 thou/uL 0.0-0.2 N XR Hip Lt 2-3 View [facility] BR[facility]ANName: FRANDY DICK : 1940 Sex: F Pt Name: FRANDY DICK [address] Phys: Nella Bedoya VETERINARY SURGEON [place] [address] : 1940 Age: 83 SEX:F [phone] Exam Date: 05/19/23 Status: REG CLI Acct: [id number] Loc: BICRAD Pt Unit #: [id number] Report #: [id number] CC: Nella Bedoya VETERINARY SURGEON : IMAGING SERVICES REPORT Report Status: Signed Order# Category/Exam [id number] RAD/XR Hip Lt 2-3 View ([id number]): . Results XR Hip Lt 2-3 View History: Hip pain Comparison: None. Findings: Moderate enthesopathy left greater trochanter. No acute fracture or malalignment. Small left acetabular osteophyte formation. Intact left obturator ring. Mild narrowing left hip joint. Impression: Mild left hip osteoarthritis. No acute osseous abnormality. Reported By: GLYNN MARIN Electronically Signed Date/Time: 05/19/23 1416 Technologist: CLINTON Dictated Date/Time: 415 Transcribed Date/Time:XR Lumbar Spine Bending Min 4V [facility]ANName: FRANDY DICK : 1940 Sex: F [facility]: [facility] [address] [facility] [facility] Phys: Nella Bedoya NP [place] [address] : 1940 Age: 83 SEX:[phone] Exam Date: 05/19/23 Status: REG CLI Acct: [id number] Loc: BICRAD Pt Unit #: [id number] Report #: [id number] CC: Nella Bedoya VETERINARY SURGEON : IMAGING SERVICES REPORT Report Status: Signed Order # C ategory/Exam [id number] RAD/XR Lumbar Spine Bending Min 4V ([id number]): . Results XR Lumbar Spine Bending Min 4V History: Lumbar spondylosis Comparison: None. Findings: 17 degrees levoscoliosis of the lumbar spine. No acute fracture or malalignment. 2 mm L3/L4 anterolisthesis. Moderate L4/L5 and L5/S1 facet arthrosis. Normal appearance of the SI joints. Phlebolith left hemipelvis. Mild increased translation with flexion-extension of L3/L4. Moderate disc height loss at L4/L5. Impression: Moderate lumbar spondylosis with exaggerated translation with flexion and extension L3/L4. Reported By: GLYNN MARIN Electronically Signed Date/Time: 05/19/23 1641 Technologist: CLINTON Dictated Date/Time: 05/19/23 1637 Transcribed Date/Time:XR Chest 1 View Portable [facility] BRYANName: FRANDY DICK MATTHEW : 1940 [facility]: [facility] Pt Name: FRANDY DICK [address] Phys: [place] [address] : 1940 Age: 80 SEX:F [phone] Exam Date: 02/15/21 Status: REG ER Acct: [id number] Loc: ERS Pt Unit #: [id number] Report #: [id number] CC: Garland Montesinos MD IMAGING SERVICES REPORT Order # Category/Exam [id number] RAD/XR Chest 1 View Portable ([id number]): . Results XR Chest 1 View Portable HISTORY: Dizziness, mild shortness of breath COMPARISON: 01/25/2021 FINDINGS: The heart size is normal. The lungs are well expanded without focal areas of consolidation, pneumothorax or pleural effusions. IMPRESSION: No radiographic evidence of acute cardiopulmonary process. ReportedBy: Kg Hunt MD Electronically Signed Date/Time: 02/15/211903 Technologist: TEDDY Dictated Date/Time: 02/15/211903 Transcribed Date/Time:XR Chest Pa Lat STANDARD [facility] BRYANName: FRANDY DICK : 1940 Sex: F Pt Name: [facility] [address]ICK [address] Phys: [place] [address] : 1940 Age: 80 SEX:F [phone] Exam Date: 07/18/20 Status: REG CLI Acct: [id number] Loc: LOY Pt Unit #: [id number] Report #: [id number] CC: Lance Zamora MD IMAGING SERVICES REPORT Order # [id number] RAD/XR Chest Pa Lat STANDARD ([id number]): . Results CHEST 2 VIEWS: Date: 07/18/2020 HISTORY: Dyspnea. COMPARISON: Radiograph dated 12/10/2019. FINDINGS: Mild background lung hyperinflation. No confluent air space consolidation, pneumothorax, or effusion. Cardiac silhouette and mediastinal contours are similar. IMPRESSION: No acute intrathoracic abnormality. POS: [facility] Reported By: GLYNN MARIN Electronically Signed Date/Time: 07/18/20 1039 Technologist: CHUY Dictated Date/Time: 07/18/20 1014 Transcribed Date/Time: 07/18/20 1025 Notes Date/Time Note Provider Source 2023-09-12 07:08:00 [facility] Name: FRANDY DICK [address] : 1940, Age: 83, Sex: CHARY Tena [address] Unit #: [id number], Status: ADM [place] [phone] Location: SURG A [facility] Dictated by: Aamir Powell MD Admission Date: 09/10/23 Report #: [id number] Discharge Date: CC: Loretta Peña MD, Jason MD PROGRESS NOTE Report Status: Signed DATE OF SERVICE: 09/12/2023 Ms. Dick is doing very well. She did have a controlled fall this morning coming back from the bathroom with the nurses' aid. She did not hurt herself. She feels in good spirits, and I attribute this to being in an unfamiliar environment given her age and postoperative pain medication. She has no leg pain, full strength. She is ready to be discharged. We will make arrangements for discharge today. Job ID: [id number] Dictated by: Aamir Powell MD <Electronically signed by Aamir Powell MD> 09/12/23 0712 Dictated Date/Time: 09/12/23 0657 Transcribed Date/Time: 09/12/23 0705 Compilation Clerk: Aamir Manzanares [facility] 2023-09-12 04:04:00 [facility] Name: FRANDY [address] : 1940, Age: 83, Sex: CHARY Tena [address] Unit #: [id number], Status: DIS IN [phone] Location: SURG A 3302-P Dictated by: Libby Ovalle PA-C Admission Date: 09/10/23 Report #: [id number] Discharge Date: 09/12/23 CC: Loretta Peña MD, Victoria PA-C Hoover, Jason MD PROGRESS NOTE Report Status: Signed DATE OF SERVICE: Ms. Dick is postoperative day #1 following right L2-L3 hemilaminotomy and foraminotomy and L3 to S1 laminectomies. No overnight events were reported. The patient denies postoperative leg pain. She has been urinating without difficulty. She has already been out of bed and ambulated to her bedroom door. Today, she will work on mobilizing in the hallways with physical therapy. If she is doing well tomorrow morning, we will discharge her home. Job ID: [id number] Dictated by: Libby Ovalle PA-C <Electronically signed by Libby Ovalle PA-C> 01/11/24 0942 Dictated Date/Time: 09/12/23 0326 Transcribed Date/Time: 09/12/23 0401 Compilation Clerk: Libby Cobian [facility] 2023-09-10 14:14:00 [facility] Name: FRANDY DICK [employer] : 1940, Age: 83, Sex: CHARY Tena [address] Unit #: [id number], Status: ADM IN [phone] Location: SURG A 3302-P Dictated by: Aamir Powell MD Admission Date: 09/10/23 Report #: [id number] Discharge Date: CC: Loretta Peña MD, Jason MD OPERATIVE NOTE Report Status: Signed DATE OF PROCEDURE: 09/10/2023 LOCATION: OR 12. SURGEON: Aamir Powell MD QUALITY PROCESS AUDITOR: Libby Ovalle PA-C PHYSICIAN QUALITY PROCESS AUDITOR ATTESTATION: The physician faculty research assistant was present through the entire procedure and was responsible for providing exposure, tissue retraction, and any necessary tissue manipulation required to obtain necessary reduction or hardware placement. The physician faculty research assistant also provided bleeding control, tissue closure, and suturing in conjunction with the primary surgeon. PREPROCEDURE DIAGNOSES: Lumbar stenosis, low back and leg pain. POSTPROCEDURE DIAGNOSES: Lumbar stenosis, low back and leg pain. PROCEDURES: 1. Right L2-L3 hemilaminotomy and foraminotomy. 2. L3-S1 laminectomy, partial facetectomy, and foraminotomy. DESCRIPTION OF PROCEDURE: After informed consent was obtained from the patient, the patient was brought to the OR. Proper patient, pause, and identification were carried out. She was placed under general endotracheal anesthesia and positioned prone on the OR table. All appropriate points were padded. We identified the L2-S1 dorsal spines. A linear caitlin was made over this area. This area was sterilely cleansed, prepared and draped. Proper patient, pause, and identification were carried out. The wound was then opened with a combination of sharp, monopolar, and blunt dissection. The right L2-L3 segment along with the L3-S1 dorsal spines and lamina were all exposed. Localization film confirmed our area of interest, and we performed a right L2-L3 hemilaminotomy, foraminotomy, and L3-S1 laminectomy, partial facetectomy, and foraminotomy with excellent decompression of common dural tube and nerve roots. Copious irrigation occurred throughout as did maximized hemostasis. Wound was then closed in anatomic layers following sprinkling of vancomycin powder and meticulous hemostasis. The patient emerged from anesthesia. Job ID: [id number] Dictated by: Aamir Powell MD <Electronically signed by Aamir Powell MD> 09/12/23 0711 Dictated Date/Time: 09/10/23 1244 Transcribed Date/Time: 09/10/23 1353 Compilation Clerk: Aamir Manzanares [facility] 2021-02-17 21:09:00 [facility] Name: FRANDY DICK [address] : 1940, Age: 80, Sex: F CHARY [place] [address] Unit #: [id number], Status: DIS IN [phone] [id number] Location: [address] Report Dict : Asad Sanabria DO Admission Date: 02/15/21 Report #: [id number] Discharge Date: 02/17/21 CC: Discharge Summary Provider Date of Admission: 02/15/21 23:10 Date of Discharge: 02/17/21 Admitting Provider: Kiko Oliver MD Primary Care Physician: NO PCP PROVIDER Course Hospital Course: In the hospital for work-up of anemia, weakness. Patient ultimately did not require transfusion for her anemia. Urinalysis collected, appeared to have an infection despite a poor collection, she was started on cefepime. On day of discharge patient was greatly improved. Hemoglobin stable.. Patient was ambulating in the room and she and her were requesting go home. Was discharged on oral Omnicef to follow-up closely with her physicians Resuscitation Status: 02/16/21 02:28 Resuscitation Status Routine Co-Sign Provider: Resuscitation Status: FULL: Full Resuscitation Discussed with: Patient at bedside Lab Results: 02/16/21 05:51 02/16/21 05:51 Abnormal Lab Results - Last 48 hrs 02/15/21 20:59: Urine Urobilinogen 2.0 A, Ur Leukocyte Esterase 500 A, Urine WBC 21-50 A, Ur Squamous Epith Cells 4-6 A, Ur Renal Epithelial Cell 0-3 A, Amorphous Crystals Rare A, Urine Bacteria 2+ A 02/16/21 05:51: Sodium 133 L, Iron 43 L, TIBC 248 L 02/16/21 05:51: RBC 3.22 L, Hgb 10.3 L, Hct 30.2 L, MCH 32.0 H, MPV 7.0 L, Lymphocytes % 15.8 L, Monocytes % 12.3 H, Lymphocytes # 0.9 L, Monocytes # 0.7 H Vitals: Vital Signs (12 hours) Temp Pulse Resp BP Pulse Ox 02/17/21 17:09 97.8 F 85 18 133/69 91 L 02/17/21 16:00 97.8 F 85 16 02/17/21 12:11 98.1 F 72 18 122/63 96 Weight Weight 129 lb 1.6 oz Physical Exam: The patient was seen and examined on the day of discharge. General Appearance: NAD, awake alert General - other findings: Ambulating in room Eye: PERRL, anicteric sclera ENT: normocephalic atraumatic, no oropharyngeal lesions Neck: supple, symmetric, no JVD Respiratory: CTAB, no wheezes, no rales Cardiovascular: RRR, no murmur, no gallops Gastrointestinal: soft, non-tender, non-distended Extremities: no cyanosis, no clubbing Skin: normal turgor, no lesions Neurological: cranial nerve grossly intact, normal sensation to touch Musculoskeletal: normal tone, normal strength, no muscle wasting PSYCH: normal affect, normal behavior, A O x 3 Problem Time Spent in discharge related activities (mins): 45 (Educated patient and her on diagnoses and discharge.) (1) Anemia Code(s): D64.9 - ANEMIA, UNSPECIFIED Status: Acute (2) Urinary tract infection Status: Acute Qualifiers: Urinary tract infection type: acute cystitis (3) Generalized weakness Code(s): R53.1 - WEAKNESS Status: Chronic Plan Prescriptions: Cefdinir [Omnicef] 300 mg PO Q12HR #3 cap Home Medications: Medication Instructions Recorded Confirmed Type Cholecalciferol (Vitamin D3) 5,000 unit PO ASDIR 02/16/21 02/16/21 History [Vitamin D] Levothyroxine Sodium 50 mcg PO DAILY 02/16/21 02/16/21 History [Levothyroxine] Simvastatin 20 mg PO DAILY 02/16/21 02/16/21 History Valsartan [Diovan] 160 mg PO DAILY 02/16/21 02/16/21 History amLODIPine Besylate [Norvasc] 2.5 mg PO DAILY 02/16/21 02/16/21 History Cefdinir [Omnicef] 300 mg PO Q12HR #3 cap 02/17/21 Rx Allergies: Penicillins Allergy (Verified 02/16/21 01:27) Rash Activity:: Activity as Tolerated Nourishment:: No Restrictions Referrals: PROVIDER,NO PCP [Primary Care Provider] - Disposition: HOME Quality CORE MEASURES:: N/A <Electronically signed by Asad Sanabria DO> 02/17/212110 Asad SanabriaH 2021-02-16 14:45:00 [facility] Name: FRANDY DICK [address] : 1940, Age: 80, Sex: CHARY Tena [address] Unit #: [id number], Status: ADM [place] [phone] Location: [address] Report Dict DrMary: Geoff Doshi MD Admission Date: 02/15/21 Report #: [id number] Discharge Date: CC: Hospitalist Progress Note - Subjective Encounter Date: 02/16/21 Subjective: pt seen this morning. It appears wants her to come to the ER for further work-up because of the anemia including colonoscopy evaluation. Hemoglobin drop is not significant enough to do the transfusion. - Objective Vital Signs Weight: Vital Signs (12 hours) Temp Pulse Resp BP BP BP Pulse Ox 02/16/21 11:00 97.8 F 65 12 123/65 96 02/16/21 08:15 68 139/77 02/16/21 08:00 97.9 F 68 16 139/77 95 02/16/21 07:50 97.9 F 68 14 139/77 95 02/16/21 04:00 97.9 F 63 20 146/78 H 94 L Weight Weight 129 lb 1.6 oz I O: 02/15/21 02/16/21 02/17/21 06:59 06:59 06:59 Intake Total 420 Balance 420 Result Diagrams: 02/16/21 05:51 02/16/21 05:51 Hospitalist ROS - Medication Medications: Active Medications Generic Name Dose Route Start Last Admin Trade Name Freq PRN Reason Stop Dose Admin Acetaminophen 650 mg 02/16/21 02:28 02/16/21 08:14 Acetaminophen 325 Mg Tab PO 650 mg Q4H PRN Administration Headache/Fever/Mild Pain (1-3) Amlodipine Besylate 2.5 mg 02/16/21 09:00 02/16/21 08:15 Amlodipine 5 Mg Tab PO 2.5 mg DAILY WOLFGANG Administration Atorvastatin Calcium 10 mg 02/16/21 09:00 02/16/21 08:14 Atorvastatin Calcium 10 Mg Tab PO 10 mg DAILY WOLFGANG Administration Cholecalciferol 5,000 units 02/16/21 09:00 02/16/21 08:14 Cholecalciferol 1,000 Units (25 Mcg) Tab PO 5,000 units Q7D WOLFGANG Administration Enoxaparin Sodium 40 mg 02/16/21 09:00 02/16/21 08:14 Enoxaparin Sodium 40 Mg/0.4 Ml Syringe SC 40 mg 0900 WOLFGANG Administration Cefepime HCl 2 gm/ Sodium 100 mls @ 200 mls/hr 02/16/21 11:00 02/16/21 11:41 Chloride IVPB 100 mls 1100,2300 WOLFGANG Administration Levothyroxine Sodium 50 mcg 02/16/21 06:00 02/16/21 06:13 Levothyroxine Sodium 50 Mcg Tab PO 50 mcg 0600 WOLFGANG Administration Valsartan 160 mg 02/16/21 09:00 02/16/21 08:14 Valsartan 80 Mg Tab PO 160 mg DAILY WOLFGANG Administration Hospitalist Exam Vitals: Vital Signs (12 hours) Temp Pulse Resp BP BP BP Pulse Ox 02/16/21 11:00 97.8 F 65 12 123/65 96 02/16/21 08:15 68 139/77 02/16/21 08:00 97.9 F 68 16 139/77 95 02/16/21 07:50 97.9 F 68 14 139/77 95 02/16/21 04:00 97.9 F 63 20 146/78 H 94 L Weight Weight 129 lb 1.6 oz General Appearance: NAD, awake alert Eye: PERRL ENT: normocephalic atraumatic Neck: supple Heart: RRR, normal peripheral pulses Respiratory: CTAB, normal chest expansion Gastrointestinal: soft, normal bowel sounds Extremities: 1+ LE edema Neurological: no focal deficits Musculoskeletal: generalized weakness Psychiatric: A O x 3 Hosp A/P - Plan Urinary tract infection Status: Acute Qualifiers: Urinary tract infection type: acute cystitis (2) Generalized weakness Code(s): R53.1 - WEAKNESS Status: Chronic (3) Hypertension Code(s): I10 - ESSENTIAL (PRIMARY) HYPERTENSION Status: Chronic (4) Anemia Code(s): D64.9 - ANEMIA, UNSPECIFIED Status: Acute Plan: Urinary tract infection UA obtained and leukocytes 500, WBC 21-50, bacteria 2+ and hyaline casts 0-3. Patient has allergies to penicillins. Continue cefepime 2 g every 12 hours Anemia Generalized weakness Hemoglobin 10.3 and hematocrit 29.6 Patient denies hematochezia, hematemesis, or melena Hemoglobin 10.3 and hematocrit 29.6 B12 greater than 2000, folate 13, and reticulocyte count 2.7 Last colonoscopy approximately 3 years ago patient states it was unremarkable Patient states that oncologist Dr. Millan states she is due for a colonoscopy--------->can be followed as outpt as hgb remains stable. PT consult and poss. inpt rehab. Hypothyroidism TSH 1.1 and levothyroxine 50 mcg continued Hypertension Vital signs every 4 hours Amlodipine 2.5 mg daily and valsartan 160 mg daily resumed DVT prophylaxis Lovenox CODE STATUS Full code <Electronically signed by Geoff Doshi MD> 02/16/21 1450 Geoff Doshi [facility] 2021-02-15 23:54:00 [facility] Name: FRANDY DICK [employer] : 1940, Age: 80, Sex: CHARY Tena [address] Unit #: [id number], Status: ADM IN [phone] Location: [address] Report Dict DrMary: Portia Ybarra [facility] Admission Date: 02/15/21 Report #: [id number] Discharge Date: CC: Hospitalist History Physical Hospitalist HPI Generalized weakness History of Present Illness: 80-year-old female with a medical history of hypertension, hypothyroidism, and colon cancer currently in remission presented to the emergency department for complaint of generalized weakness. She had her annual visit with her oncologist and per patient oncologist recommended that she presents to the emergency department due to a two-point drop in hemoglobin within 4 weeks. Patient endorses generalized weakness over the past couple of months as well as shortness of breath on exertion. Symptoms have become progressively worse over the past few weeks. She describes her symptoms as moderate to severe. She states that when she walks across the room she becomes so winded that she has to sit and rest. Activity intensifies symptoms and rest helps to alleviate it. She denies hematochezia, hematemesis, or melena. She states she was evaluated by deck builder and digital sales planner for progressive weakness and work-up within normal limits. She was seen by her PCP outpatient 4 weeks ago she was treated by for upper respiratory tract infections and she completed antibiotic course. She denies congestion, cough, or rhinorrhea. ED Course: EKG showed normal sinus rhythm with a heart rate of 75. UA obtained and leukocytes 500, WBC 21-50, bacteria 2+ and hyaline casts 0-3. TSH 1.1, magnesium 2.0, troponin I less than 0.01, BNP 199, vitamin B12 greater than 2000, and sodium 137, potassium 4.1, BUN 23, creatinine 0.93, reticulocyte 2.7, hemoglobin 10.3, and hematocrit 29.6. Folic acid 13. He was given cefepime 2 g IV piggyback. Comments: To be reviewed and updated by nursing staff Past History: Medical history Hypertension Colon cancer 2010 Anxiety Hypothyroidism Past surgical history 19 inches of colon removed in 2010 Social history Drinks socially Denies illicit drug use and tobacco abuse Lives at home with family Hospitalist TRUPTI MONROE Constitutional: reports: weakness, malaise Eyes: denies: vision change ENT: denies: throat pain, throat swelling Respiratory: reports: shortness of breath, SOB with excertion. denies: cough, hemoptysis, pleuritic pain Cardiovascular: denies: chest pain, palpitations Gastrointestinal: denies: nausea, vomiting, abdominal pain Genitourinary: denies: dysuria, frequency, incontinence Musculoskeletal: denies: neck pain, shoulder pain, arm pain Skin: denies: rash, lesions, gilmar Neurological: reports: weakness. denies: numbness, incoordination, change in speech, confusion Hospitalist Exam General Appearance: awake alert Eye: PERRL ENT: normocephalic atraumatic Neck: supple Heart: RRR, no murmur, no gallops, no rubs Respiratory: CTAB, no wheezes, no rales, no ronchi Gastrointestinal: soft, non-tender Extremities: no edema Skin: normal turgor, no lesions Neurological: no focal deficits. negative: no weakness Musculoskeletal: generalized weakness Psychiatric: normal affect, normal behavior, A O x 3 Hospitalist Results Result Diagrams: 02/15/21 17:38 02/15/21 17:38 Lab results: Laboratory Last Values WBC 6.2 thou/uL (4.8-10.8) 02/15/21 17:38 RBC 3.15 mill/uL (4.20-5.40) L 02/15/21 17:38 Hgb 10.3 g/dL (12.0-16.0) L 02/15/21 17:38 Hct 29.6 % (36.0-47.0) L 02/15/21 17:38 MCV 94.2 fL (78.0-98.0) 02/15/21 17:38 MCH 32.7 pg (27.0-31.0) H 02/15/21 17:38 MCHC 34.7 g/dL (32.0-36.0) 02/15/21 17:38 RDW 12.7 % (11.5-14.5) 02/15/21 17:38 Plt Count 322 thou/uL (130-400) 02/15/21 17:38 MPV 6.7 fL (7.4-10.4) L 02/15/21 17:38 Neutrophils % 72.7 % (42.0-75.0) 02/15/21 17:38 Lymphocytes % 13.6 % (21.0-51.0) L 02/15/21 17:38 Monocytes % 12.1 % (0.0-10.0) H 02/15/21 17:38 Eosinophils % 1.0 % (0.0-10.0) 02/15/21 17:38 Basophils % 0.5 % (0.0-1.0) 02/15/21 17:38 Neutrophils # 4.5 thou/uL (1.40-6.50) 02/15/21 17:38 Lymphocytes # 0.8 thou/uL (1.20-3.40) L 02/15/21 17:38 Monocytes # 0.8 thou/uL (0.11-0.59) H 02/15/21 17:38 Eosinophils # 0.1 thou/uL (0.0-0.7) 02/15/21 17:38 Basophils # 0.0 thou/uL (0.0-0.2) 02/15/21 17:38 Retic Count 2.7 % (0.5-1.5) H 02/15/21 17:38 Immature Retic Fraction 0.221 Ratio (0.163-0.362) 02/15/21 17:38 PT 13.5 sec (12.0-14.7) 02/15/21 17:38 INR 1.0 02/15/21 17:38 APTT 29.0 sec (22.9-36.1) 02/15/21 17:38 Sodium 137 mmol/L (136-145) 02/15/21 17:38 Potassium 4.1 mmol/L (3.5-5.1) 02/15/21 17:38 Chloride 101 mmol/L (98-107) 02/15/21 17:38 Carbon Dioxide 27 mmol/L (23-31) 02/15/21 17:38 Anion Gap 13 mmol/L (10-20) 02/15/21 17:38 BUN 23 mg/dL (9.8-20.1) H 02/15/21 17:38 Creatinine 0.93 mg/dL (0.6-1.1) 02/15/21 17:38 Estimated GFR (MDRD) 58 02/15/21 17:38 Glucose 99 mg/dL (83-110) 02/15/21 17:38 Calcium 9.6 mg/dL (7.8-10.44) 02/15/21 17:38 Magnesium 2.0 mg/dL (1.6-2.6) 02/15/21 17:38 Total Bilirubin 0.4 mg/dL (0.2-1.2) 02/15/21 17:38 AST 12 U/L (5-34) 02/15/21 17:38 ALT 10 U/L (8-55) 02/15/21 17:38 Alkaline Phosphatase 20 U/L (40-110) L 02/15/21 17:38 Troponin I Less than 0.010 ng/mL (< 0.028) 02/15/21 17:38 B-Natriuretic Peptide 199.4 pg/mL (0-100) H 02/15/21 17:38 Serum Total Protein 6.7 g/dL (5.8-8.1) 02/15/21 17:38 Albumin 4.1 g/dL (3.4-4.8) 02/15/21 17:38 Globulin 2.6 g/dL (2.4-3.5) 02/15/21 17:38 Albumin/Globulin Ratio 1.6 g/dL (1.2-2.2) 02/15/21 17:38 Vitamin B12 Greater than 2000 pg/mL (211-911) H 02/15/21 17:38 Folate 13.00 ng/mL (7.0-31.4) 02/15/21 17:38 TSH 3rd Generation 1.1001 uIU/mL (0.35-4.94) 02/15/21 17:38 Urine Color Light-Yellow (Yellow) 02/15/21 20:59 Urine Clarity Clear (Clear) 02/15/21 20:59 Urine pH 7.0 (5.0-9.0) 02/15/21 20:59 Ur Specific [place] 1.018 (1.002-1.036) 02/15/21 20:59 Urine Protein Negative mg/dL (Neg-Trace) 02/15/21 20:59 Urine Glucose (UA) Normal mg/dL (Negative) 02/15/21 20:59 Urine Ketones Negative mg/dL (Negative) 02/15/21 20:59 Urine Blood Negative (Negative) 02/15/21 20:59 Urine Nitrite Negative (Negative) 02/15/21 20:59 Urine Bilirubin Negative (Negative) 02/15/21 20:59 Urine Urobilinogen 2.0 mg/dL (Less than 2) A 02/15/21 20:59 Ur Leukocyte Esterase 500 Annabella/uL (Negative) A 02/15/21 20:59 Urine RBC 0-3 HPF (0-3) 02/15/21 20:59 Urine WBC 21-50 HPF (0-3) A 02/15/21 20:59 Ur Squamous Epith Cells 4-6 HPF (0-3) A 02/15/21 20:59 Ur Renal Epithelial Cell 0-3 HPF (None Seen) A 02/15/21 20:59 Amorphous Crystals Rare HPF (None Seen) A 02/15/21 20:59 Urine Bacteria 2+ HPF (None Seen) A 02/15/21 20:59 Hyaline Casts 0-3 LPF (0-3) 02/15/21 20:59 Blood Type A POSITIVE 02/15/21 17:38 Antibody Screen NEGATIVE 02/15/21 17:38 Hospitalist H P A/P (1) Urinary tract infection Status: Acute Qualifiers: Urinary tract infection type: acute cystitis (2) Generalized weakness Code(s): R53.1 - WEAKNESS Status: Chronic (3) Hypertension Code(s): I10 - ESSENTIAL (PRIMARY) HYPERTENSION Status: Chronic (4) Anemia Code(s): D64.9 - ANEMIA, UNSPECIFIED Status: Acute Plan: Urinary tract infection UA obtained and leukocytes 500, WBC 21-50, bacteria 2+ and hyaline casts 0-3. Patient has allergies to penicillins. Continue cefepime 2 g every 12 hours Anemia Generalized weakness Hemoglobin 10.3 and hematocrit 29.6 Patient denies hematochezia, hematemesis, or melena Hemoglobin 10.3 and hematocrit 29.6 B12 greater than 2000, folate 13, and reticulocyte count 2.7 Last colonoscopy approximately 3 years ago patient states it was unremarkable Patient states that oncologist Dr. Millan states she is due for a colonoscopy Hypothyroidism TSH 1.1 and levothyroxine 50 mcg continued Hypertension Vital signs every 4 hours Amlodipine 2.5 mg daily and valsartan 160 mg daily resumed DVT prophylaxis Lovenox CODE STATUS Full code <Electronically signed by Portia Ybarra WATER SUPPLY TECHNICIAN-> 02/16/21 0410 Portia Ybarra
[2024-12-10] MEDS ORDERED: ONDANSETRON 4 MG/2 ML VIAL ONE (10:29)
[2024-12-10] MEDS ORDERED: FENTANYL CITR 100 MCG/2 ML ONE (10:29)
[2024-12-10 10:34] LABS: Sqamous Epithelial <5 /HPF (None Seen); Urine Bacteria <20 /HPF (<20); Urine Bilirubin NEGATIVE (Negative); Urine Blood Negative (Negative); Urine Clarity Clear (Clear); Urine Color Light-Yellow (Yellow); Urine Glucose NEGATIVE (Negative); Urine Ketones NEGATIVE (Negative); Urine Micro Reflex YN NO BILL MICROSCOPIC; Urine Mucus Slight /HPF (None Seen); Urine Nitrite NEGATIVE (Negative); Urine Protein NEGATIVE (Negative); Urine RBC <5 /HPF (None Seen); Urine Urobilinogen Normal (Normal); Urine WBC <5 /HPF (<5)
[2024-12-10 10:36] LABS: Absolute Basophils 0.1 K/uL (0-0.5); Absolute Eosinophils 0.1 K/uL (0-0.5); Absolute Lymphocytes (CBC) 0.9 K/uL (0.7-4.9); Absolute Monocytes 0.7 K/uL (0.1-1.3); Absolute Neutrophil 2.9 K/uL (1.8-8.0); Basophils % 1.1 % (0-1.3); Eosinophils % 1.9 % (0-4.4); Hematocrit 33.3 % (36.0-45.0); Hemoglobin 11.7 g/dL (12.0-15.0); Lymphocytes % 19.7 % (15.3-44.8); MCHC 35.2 g/dL (32.0-36.0); MCV 88.2 fL (80-100); MPV 8.6 fL (7.6-11.3); Monocytes % 15.5 % (3.3-12.3); Neutrophils % 61.8 % (41.7-73.7); Nucleated Red Blood Cells % 0.2 % (0-0); Platelets 275 thou/uL (152-406); RBC Red Blood Cell Count 3.78 M/uL (3.86-4.86); Red Cell Distribution Width 13.5 % (12.1-15.2)
[2024-12-10 10:48] LABS: Anion Gap 11.2 mEq/L (5.0-15.0); Potassium 4.2 mEq/L (3.5-5.1)
[2024-12-10 11:44] LABS: Albumin 3.8 g/dL (3.4-5.0); Albumin/Globulin Ratio 1.5 (1.1-1.8); Bilirubin Total 0.5 mg/dL (0.2-1.0); Globulin 2.6 g/dL (2.3-3.5); Protein, Total 6.4 g/dL (6.4-8.2)
--- NOTE | 2024-12-10 12:10 | RAD REPORT ---
EXAMINATION: CT Abdomen Pelvis W Contrast CLINICAL INDICATION: Female, 84 years old. ABD PAIN TECHNIQUE: CT abdomen and pelvis was performed, after the administration of IV contrast, as per [facility] protocol. Axial, sagittal and coronal reconstructions were obtained. One or more of the following dose reduction techniques were used: Automated exposure control, adjustment of the mA and k V according to patient size, and iterative reconstruction. Unless otherwise specified, incidental findings do not require dedicated imaging follow-up. COMPARISON: No prior exam. FINDINGS: LOWER CHEST: The visualized lung bases are clear. LIVER: Normal in size and contour. No focal lesion. BILIARY SYSTEM: No suspicious abnormalities. SPLEEN: Normal size. No focal lesion. PANCREAS: No mass, ductal dilation, or brandon-pancreatic fluid. ADRENALS: Normal; no mass. KIDNEYS: Normal size and contour. No hydronephrosis. URINARY BLADDER: Unremarkable. GASTROINTESTINAL TRACT: No evidence of free air, significant intra-abdominal free fluid, bowel obstru ction or abscess. Right flank ileocecal anastomotic suture line, probably relates to prior partial bowel resection. Interposition of the splenic flexure anterior to the liver. APPENDIX: Appendix surgically absent. LYMPH NODES: No lymphadenopathy. MUSCULOSKELETAL: No acute or suspicious osseous abnormality. ADDITIONAL FINDINGS: Status post hysterectomy.. IMPRESSION: No acute or concerning abnormalities seen in the abdomen or pelvis. Incidental findings as above.
--- NOTE | 2024-12-10 13:56 | ER ---
Nurse's Notes [facility] Name: Sophia Dick Age: 84 yrs Sex: Female : 1940 Arrival Date: 12/10/2024 Time: 09: Bed 14 Private MD: Diagnosis: Abdominal pain, unspecified;Abdominal tenderness, unspecified site Presentation: 12/10 09:28 Chief complaint: Right flank pain x 2 days. Coronavirus screen: At this time, the hb client does not indicate any symptoms associated with coronavirus-19. Ebola Screen: No symptoms or risks identified at this time. Initial Sepsis Screen: Does the patient meet any 2 criteria? No. Patient's initial sepsis screen is negative. Does the patient have a suspected source of infection? No. Patient's initial sepsis screen is negative. Risk Assessment: Do you want to hurt yourself or someone else? Patient reports no desire to harm self or others. Onset of symptoms was December 10, 2024. :28 Method Of Arrival: Ambulatory : Acuity: MALI 3 hb Historical: - Allergies: PENICILLINS; hb - Immunization history:: Adult Immunizations up to date. - Infectious Disease History:: Denies. - Social history:: Smoking status: Patient denies any tobacco usage or history of. Screenin:[address] [facility] ED Fall Risk Assessment (Adult) History of falling in the last 3 months, me1 including since admission No falls in past 3 months (0 pts) Confusion or Disorientation No (0 pts) Intoxicated or Sedated No (0 pts) Impaired Gait No (0 pts) Mobility Assist Device Used No (0 pt) Altered Elimination No (0 pt) Score/Fall Risk Level 0 - 2 = Low Risk Maintained a safe environment, Provided non-skid footwear, Hourly rounding (assess needs \T\ fall precautionary measures) done. Abuse screen: Denies threats or abuse. Nutritional screening: No deficits noted. Tuberculosis screening: No symptoms or risk factors identified. Assessment: 10:00 General: Appears uncomfortable, well groomed, well developed, well nourished, Behavior me1 is calm, cooperative, appropriate for age, Reports right flank pain x 2 days. Pain: Complains of pain in posterior aspect of right lateral abdomen and anterior aspect of right lateral abdomen Pain does not radiate. Pain currently is 8 out of 10 on a pain scale. Quality of pain is described as sharp, Pain began 2-3 days ago. Is continuous. Neuro: Level of Consciousness is awake, alert, obeys commands, Oriented to person, place, time, situation, Appropriate for age. Cardiovascular: Patient's skin is warm and dry. Respiratory: Airway is patent Respiratory effort is even, unlabored, Respiratory pattern is regular, symmetrical. GI: No signs and/or symptoms were reported involving the gastrointestinal system. : Reports pain in right flank(s). EENT: No signs and/or symptoms were reported regarding the EENT system. Derm: Skin is intact, is healthy with good turgor, Skin is pink, warm \T\ dry. Musculoskeletal: No signs and/or symptoms reported regarding the musculoskeletal system. Vital Signs: 09:28 BP 150 / 98; Pulse 81; Resp 16; Temp 97.9(O); Pulse Ox 100% on R/A; Weight 60.78 kg; hb Height 5 ft. 8 in. ; Pain 8/10; 11:00 BP 135 / 70; Pulse 68; Resp 15; Pulse Ox 100% ; me1 11:41 Pain 0/10; me1 12:00 BP 148 / 66; Pulse 75; Resp 15; Pulse Ox 99% ; me1 13:00 BP 126 / 66; Pulse 73; Resp 15; Pulse Ox 97% ; me1 13:57 BP 114 / 60; Pulse 60; Resp 15; Pulse Ox 96% ; me1 09:28 Body Mass Index 20.37 (60.78 kg, 172.72 cm) hb 09:28 Pain Scale: Adult hb 11:41 Pain Scale: Adult me1 ED Course: 09:14 Patient arrived in ED. gl 09:28 Triage completed. hb 09:29 Arm band placed on. hb 09:45 Carlo Wright, LANE is Primary Nurse. jl7 09:49 Randal Escamilla MD is Attending Physician. bo1 10:00 Patient has correct armband on for positive identification. Bed in low position. Call me1 light in reach. Side rails up X2. Provided Education on: POC. Verbalized understanding.. Client placed on continuous cardiac and pulse oximetry monitoring. NIBP monitoring applied. Pulse ox on. NIBP on. 10:00 No provider procedures requiring assistance completed. me1 10:25 Ely Reed, RN is Primary Nurse. me1 10:25 Initial lab(s) drawn, by ia, sent to lab. Inserted saline lock: 22 gauge in right me1 antecubital area, using aseptic technique. 10:25 Basic Metabolic Panel Sent. me1 10:25 CBC with Diff Sent. me1 10:25 UA W/ Microscopic Sent. me1 10:25 CMP Sent. me1 10:26 Urine collected: clean catch specimen, cloudy. me1 11:22 CT Abd/Pelvis - IV Contrast Only In Process Unspecified. EDMS 14:06 IV discontinued, intact, bleeding controlled, No redness/swelling at site. Pressure me1 dressing applied. Administered Medications: 10:34 Drug: Ondansetron IVP 4 mg IVP once; over 2 minutes Route: IVP; Site: right antecubital;me1 11:41 Follow up: Response: No adverse reaction; Nausea is decreased me1 10:34 Drug: fentaNYL (PF) IVP 100 mcg IVP once Route: IVP; Site: right antecubital; me1 11:41 Follow up: Pain 0/10 Adult; Response: No adverse reaction; Pain is decreased me1 Medication: 10:00 VIS not applicable for this client. me1 Outcome: 13:55 Discharge ordered by . bo1 14:06 Discharged to home ambulatory, with significant other, me1 14:06 Condition: stable 14:06 Discharge instructions given to patient, significant other, Instructed on discharge instructions, follow up and referral plans. medication usage, Demonstrated understanding of instructions, follow-up care, medications, Prescriptions given X 2, 14:07 Patient left the ED. me1 Signatures: Dispatcher [employer] EDCO Lorna Barry RN LANE Carlo Wright RN RN jl7 Ely Reed, RN RN me1 Randal Escamilla MD MD bo1 Tabatha Sifuentes, Reg Reg gl
--- NOTE | 2024-12-10 13:56 | EDPHYS ---
Physician Documentation [facility] Name: Sophia Dick Age: 84 yrs Sex: Female : 1940 Arrival Date: 12/10/2024 Time: 09:09 Bed 14 Private MD: ED Physician Randal Escamilla HPI: 12/10 09:58 This 84 yrs old Female presents to ER via Ambulatory with complaints of Right bo1 abd/pelvic Pain. 09:58 The patient presents with pain that is chronic, Hx of back surgery and PT, recent pain bo1 to the right groin to the right flank - 2 days constant with "sharp" nagging aches.. The symptoms are located in the Right abd/pelvic area. The pain radiates to the right flank . The problem was sustained Possible after PT treatment. Onset: The symptoms/episode began/occurred gradually, 2 day(s) ago. Modifying factors: the patient symptoms are aggravated by any movement, bending. Severity of symptoms: At their worst the symptoms were moderate, this morning. 10:04 Hx of appendectomy. bo1 10:12 Hx of colon CA with resection and given dx of in remission. bo1 Historical: - Allergies: 09:28 PENICILLINS; hb - Immunization history:: Adult Immunizations up to date. - Infectious Disease History:: Denies. - Social history:: Smoking status: Patient denies any tobacco usage or history of. ROS: 13:49 Constitutional: Negative for fever, chills, and weight loss bo1 13:49 Constitutional: Negative for chills, fever, 13:49 Neck: Negative for pain with movement, pain at rest, 13:49 Cardiovascular: Negative for chest pain, palpitations, 13:49 Respiratory: Negative for shortness of breath, 13:49 Abdomen/GI: Positive for abdominal pain, Negative for nausea and vomiting, 13:49 MS/extremity: Negative for pain, swelling, 13:49 Skin: Negative for rash, 13:49 All other systems are negative, Exam: 13:53 Constitutional: This is a well developed, well nourished patient who is awake, alert, bo1 and in no acute distress. 13:53 Constitutional: The patient appears in no acute distress, alert, awake, comfortable, non-toxic, 13:53 Eyes: Exam is negative for acute changes, 13:53 Neck: Exam negative for acute changes, 13:53 Chest/axilla: Inspection: normal, no acute changes, 13:53 Cardiovascular: Rate: normal, Rhythm: regular, Pulses: no pulse deficits are appreciated, 13:53 Respiratory: the patient does not display signs of respiratory distress, Respirations: normal, Breath sounds: are clear throughout, 13:53 Abdomen/GI: Inspection: abdomen appears normal, Palpation: mild abdominal tenderness, in the right lower quadrant and left lower quadrant, 13:53 Back: pain, that is very mild, CVA tenderness, is absent, 13:53 Musculoskeletal/extremity: DVT Exam: No signs of deep vein thrombosis. 13:53 Skin: lesion(s), are not present, no rash present. Vital Signs: 09:28 BP 150 / 98; Pulse 81; Resp 16; Temp 97.9(O); Pulse Ox 100% on R/A; Weight 60.78 kg; hb Height 5 ft. 8 in. ; Pain 8/10; 11:00 BP 135 / 70; Pulse 68; Resp 15; Pulse Ox 100% ; me1 11:41 Pain 0/10; me1 12:00 BP 148 / 66; Pulse 75; Resp 15; Pulse Ox 99% ; me1 13:00 BP 126 / 66; Pulse 73; Resp 15; Pulse Ox 97% ; me1 13:57 BP 114 / 60; Pulse 60; Resp 15; Pulse Ox 96% ; me1 09:28 Body Mass Index 20.37 (60.78 kg, 172.72 cm) hb 09:28 Pain Scale: Adult hb 11:41 Pain Scale: Adult me1 MDM: 09:49 Medical Screening Exam initiated bo1 13:50 Differential diagnosis: arthritis, Possible bone causing pain, or source. No evidence bo1 for need of admit/obs. Data reviewed: vital signs, lab test result(s), CBC, electrolytes, urinalysis, radiologic studies, CT scan. ED course: No indication for need to hospitalize or surgery. 12/10 09:57 Order name: Basic Metabolic Panel; Complete Time: 11:22 bo1 12/10 09:57 Order name: CBC with Diff; Complete Time: 11:22 bo1 12/10 09:57 Order name: UA W/ Microscopic; Complete Time: 11:22 bo12/10 10:25 Order name: CMP; Complete Time: 11:59 bo1 12/10 09:57 Order name: CT Abd/Pelvis - IV Contrast Only; Complete Time: 12:21 bo1 12/10 09:57 Order name: IV Saline Lock; Complete Time: 10:25 bo1 12/10 09:57 Order name: Labs collected and sent; Complete Time: 10:25 bo1 Administered Medications: 10:34 Drug: Ondansetron IVP 4 mg IVP once; over 2 minutes Route: IVP; Site: right antecubital;me1 11:41 Follow up: Response: No adverse reaction; Nausea is decreased me1 10:34 Drug: fentaNYL (PF) IVP 100 mcg IVP once Route: IVP; Site: right antecubital; me1 11:41 Follow up: Pain 0/10 Adult; Response: No adverse reaction; Pain is decreased me1 Disposition Summary: 12/10/24 13:55 Discharge Ordered Notes: Location: Home bo1 Problem: new bo1 Symptoms: are unchanged bo1 Condition: Stable bo1 Diagnosis - Abdominal pain, unspecified bo1 - Abdominal tenderness, unspecified site bo1 Followup: bo1 - With: Private Physician - When: Upon discharge from the Emergency Department - Reason: Recheck today's complaints, Continuance of care Discharge Instructions: - Discharge Summary Sheet bo1 - Abdominal Pain, Adult bo1 Forms: - Medication Reconciliation Form bo1 - Antibiotic Education bo1 - Prescription Opioid Use bo1 - Patient Portal Instructions bo1 - Leadership Thank You Letter bo1 Prescriptions: - Tramadol 50 mg Oral Tablet - take 1 tablet ORAL route every 8 hours as needed; 12 tablet; Refills: 0, bo1 Product Selection Permitted - ondansetron 8 mg Oral Tablet,disintegrating - take 1 tablet ORAL route every 8 hours; 21 tablet; Refills: 0, Product bo1 Selection Permitted Signatures: Dispatcher [employer] EDLorna Maldonado RN RN Ely Reed RN RN il1 Randal Escamilla MD MD bo1 Corrections: (The following items were deleted from the chart) 09:58 09:58 Abdomen Pelvis W Con+CT.RAD.[id number] ordered. EDMS EDMS
[2024-12-10 14:36] VITALS: TEMP 97.9
[2024-12-10 14:42] VITALS: BP 114/60; O2SAT 96
== END 2024-12-10 14:07 | disposition home or self-care (01) ==
LOC: ER 09:09
DX: R10.31 Right lower quadrant pain (principal); R10.813 Right lower quadrant abdominal tenderness; Z85.038 Personal history of other malignant neoplasm of large intestine
CPT/HCPCS: 85025; 81001; 80048; 36415; 80053; 74177; 96375; 96374; 99284; Q9967; J3010; J2405